=== PATIENT | male | born 1930 | race African-American/Black ===

== ENCOUNTER 2020-11-16 07:16 | Inpatient (IN) | payer MEDICAID ==
[~2020-11-16] VITALS: Ht 165.1 cm; Wt 71.2 kg
[2020-11-16] MEDS ORDERED: SODIUM CHLORIDE 0.9% 1000ML BAG (SEPSIS BOLUS) IV ONE (07:45)
[2020-11-16] MEDS ORDERED: VANCOMYCIN 1 G PREMIX 200 ML IV ONE (07:45)
[2020-11-16] MEDS ORDERED: PIPERACILLIN/TAZ 3.375G PREMIX 50 ML IV ONE (07:45)
[2020-11-16] MEDS ORDERED: ACETAMINOPHEN 650MG SUPP PR STA (07:45)
[2020-11-16 08:55] LABS: HEMATOCRIT. 38.5 % (42.0-52.0); HEMOGLOBIN. 12.9 g/dL (14.0-18.0); MEAN CORPUSCULAR HEMOGLOBIN 33.4 pg (28.0-32.0); MEAN CORPUSCULAR VOLUME 99.8 fL (80.0-94.0); MEAN PLATELET VOLUME 9.3 fl (7.4-10.4); PLATELET 184 x1000/uL (130-400); RED BLOOD CELL COUNT 3.85 mill/uL (4.7-6.1); RED CELL DISTRIBUTION WIDTH 14.6 % (11.6-14.6)
[2020-11-16 09:03] LABS: CHLORIDE 109 mEq/L (98-107)
[2020-11-16 09:04] LABS: PROTHROMBIN TIME 10.3 sec (9.6-11.0)
[2020-11-16 10:24] LABS: PLATELET ESTIMATE NORMAL
[2020-11-16 11:24] LABS: BG BASE EXCESS -9.2 mmol/L (-2.0-2.0); BG CARBOXYHEMOGLOBIN 0.3 % (0.5-1.5); BG DEOXYHEMOGLOBIN 5.8 % (0.0-5.0); BG FRACTION INSPIRED OXYGEN 100; BG HCO3 ACT 15.9 mmol/L (22.0-26.0); BG METHEMOGLOBIN 0.2 % (0.0-1.5); BG OXYGEN SATURATION 94.2 % (92.0-98.5); BG OXYHEMOGLOBIN 93.7 % (94.0-97.0); BG PCO2 32.1 mmHg (35.0-45.0); BG PH 7.314 (7.350-7.450); BG PO2 78.6 mmHg (75.0-100.0); BG SAMPLE SITE RIGHT RADIAL; BG TOTAL HEMOGLOBIN 11.2 g/dL (12.0-18.0); BG VENT MODE MASK - NRB
[2020-11-16] MEDS ORDERED: NOREPINEPHRINE 8 MG in DEXT 5% WATER 242 ML IV PRN ×2 (13:00→15:30)
[2020-11-16] MEDS ORDERED: MIDAZOLAM HCL 2 MG/2 ML VIAL IV ONE (13:45)
[2020-11-16] MEDS ORDERED: MIDAZOLAM HCL 100 MG in DEXT 5% WATER 80 ML IV ONE ×2 (13:45→14:00)
[2020-11-16] MEDS ORDERED: NOREPINEPHRINE 8 MG in DEXT 5% WATER 242 ML IV ONE (14:00)
[2020-11-16] MEDS ORDERED: ALBUMIN HUMAN 25GM/500ML (5%) IV NR (14:15)
[2020-11-16] MEDS: SODIUM CHLORIDE 0.9% 1,000 ML IV SCH (14:45)
[2020-11-16] MEDS ORDERED: ACETAMINOPHEN 650MG/20.3ML UDC GT PRN (14:45)
[2020-11-16] MEDS ORDERED: ONDANSETRON HCL 4MG/2ML INJ IV PRN (14:45)
[2020-11-16] MEDS ORDERED: ACETAMINOPHEN 650MG SUPP PR PRN ×2 (14:45)
[2020-11-16] MEDS ORDERED: PIPERACILLIN/TAZ 3.375G PREMIX 50 ML IV SCH (15:00)
[2020-11-16 15:30] LABS: BG BASE EXCESS -9.3 mmol/L (-2.0-2.0); BG CARBOXYHEMOGLOBIN 0.3 % (0.5-1.5); BG DEOXYHEMOGLOBIN 16.4 % (0.0-5.0); BG FRACTION INSPIRED OXYGEN 100; BG METHEMOGLOBIN 0.2 % (0.0-1.5); BG OXYGEN SATURATION 83.5 % (92.0-98.5); BG OXYHEMOGLOBIN 83.1 % (94.0-97.0); BG PCO2 50.9 mmHg (35.0-45.0); BG PO2 55.9 mmHg (75.0-100.0); BG SAMPLE SITE LEFT RADIAL; BG TOTAL HEMOGLOBIN 13.4 g/dL (12.0-18.0); BG VENT MODE VENT - AC
[2020-11-16 16:03] LABS: FOLIC ACID (FOLATE) SERUM >20 ng/mL ng/mL (>5.38)
[2020-11-16 16:08] LABS: VITAMIN B12 SERUM 924 pg/mL (211-911)
[2020-11-16 16:19] LABS: PHOSPHORUS 4.1 mg/dL (2.5-4.9)
[2020-11-16] MEDS ORDERED: ENOXAPARIN 40MG/0.4ML SYR SUBCUT SCH (17:00)
[2020-11-16] MEDS: PIPERACILLIN/TAZ 3.375G PREMIX 50 ML IV SCH (17:17)
[2020-11-16] MEDS: DEXAMETHASONE 10 MG/ML VIAL IV SCH (17:18)
[2020-11-16] MEDS ORDERED: ERGOCALCIFEROL 50000UNITS CAPSULE PO SCH (18:00)
[2020-11-16 18:07] LABS: BG BASE EXCESS -9.8 mmol/L (-2.0-2.0); BG CARBOXYHEMOGLOBIN 0.3 % (0.5-1.5); BG DEOXYHEMOGLOBIN 8.8 % (0.0-5.0); BG FRACTION INSPIRED OXYGEN 100; BG HCO3 ACT 15.5 mmol/L (22.0-26.0); BG METHEMOGLOBIN 0.4 % (0.0-1.5); BG OXYGEN SATURATION 91.1 % (92.0-98.5); BG OXYHEMOGLOBIN 90.5 % (94.0-97.0); BG PCO2 31.8 mmHg (35.0-45.0); BG PH 7.305 (7.350-7.450); BG PO2 64.8 mmHg (75.0-100.0); BG SAMPLE SITE RIGHT RADIAL; BG TOTAL HEMOGLOBIN 10.3 g/dL (12.0-18.0); BG VENT MODE VENT - AC
[2020-11-16] MEDS ORDERED: PIPERACILLIN/TAZOBACTAM 3.375 G/VIAL IV SCH (22:00)
[2020-11-17] VITALS (80 sets, daily range): BP systolic 58–154; BP diastolic 31–87
[2020-11-17] MEDS: PIPERACILLIN/TAZ 3.375G PREMIX 50 ML IV SCH (01:30)
[2020-11-17] MEDS ORDERED: DEXTROSE 50% WATER 50ML SYRINGE IV PRN (03:30)
[2020-11-17] MEDS: SODIUM CHLORIDE 0.9% 1,000 ML IV SCH ×2 (05:12→21:33)
[2020-11-17 05:46] LABS: HEMATOCRIT. 32.7 % (42.0-52.0); HEMOGLOBIN. 10.7 g/dL (14.0-18.0); MEAN CORPUSCULAR HEMOGLOBIN 32.6 pg (28.0-32.0); MEAN CORPUSCULAR VOLUME 99.8 fL (80.0-94.0); MEAN PLATELET VOLUME 9.6 fl (7.4-10.4); PLATELET 77 x1000/uL (130-400); RED BLOOD CELL COUNT 3.27 mill/uL (4.7-6.1); RED CELL DISTRIBUTION WIDTH 14.5 % (11.6-14.6)
[2020-11-17] MEDS ORDERED: BLOOD SUGAR DIAGNOSTIC STRIP TEST SCH (07:50)
[2020-11-17 08:14] LABS: PLATELET ESTIMATE DECREASED
[2020-11-17] MEDS ORDERED: INSULIN LISPRO 100 UNITS/ML SUBCUT SCH ×2 (08:20→21:00)
[2020-11-17] MEDS ORDERED: VANCOMYCIN 1 G PREMIX 200 ML IV SCH (09:00)
[2020-11-17] MEDS: PIPERACILLIN/TAZOBACTAM 2.25 G in DEXTROSE 5% WATER 50 ML IV SCH ×2 (10:14→17:10)
[2020-11-17] MEDS: DEXAMETHASONE 10 MG/ML VIAL IV SCH (10:14)
[2020-11-17] MEDS: BLOOD SUGAR DIAGNOSTIC STRIP TEST SCH ×3 (12:05→23:32)
[2020-11-17] MEDS: INSULIN LISPRO 100 UNITS/ML SUBCUT SCH ×3 (12:11→23:38)
[2020-11-17] MEDS: FENTANYL CITRATE/PF 2,500 MCG in SODIUM CHLORIDE 0.9% 200 ML IV PRN (12:11)
[2020-11-17] MEDS: NOREPINEPHRINE 32 MG in DEXT 5% WATER 218 ML IV PRN (12:13)
[2020-11-17 13:37] LABS: BG BASE EXCESS -13.5 mmol/L (-2.0-2.0); BG CARBOXYHEMOGLOBIN 0.3 % (0.5-1.5); BG DEOXYHEMOGLOBIN 1.2 % (0.0-5.0); BG FRACTION INSPIRED OXYGEN 100; BG HCO3 ACT 11.8 mmol/L (22.0-26.0); BG METHEMOGLOBIN 0.4 % (0.0-1.5); BG OXYGEN SATURATION 98.8 % (92.0-98.5); BG OXYHEMOGLOBIN 98.1 % (94.0-97.0); BG PCO2 25.9 mmHg (35.0-45.0); BG PH 7.277 (7.350-7.450); BG PO2 179.5 mmHg (75.0-100.0); BG SAMPLE SITE RIGHT RADIAL; BG TOTAL HEMOGLOBIN 10.5 g/dL (12.0-18.0); BG TOTAL RESPIRATORY RATE 43 b/min; BG VENT MODE VENT - AC
[2020-11-17] MEDS ORDERED: VANCOMYCIN 750 MG PREMIX 150 ML IV SCH (14:00)
[2020-11-17] MEDS ORDERED: MIDAZOLAM HCL 100 MG in DEXT 5% WATER 80 ML IV PRN (14:15)
[2020-11-17] MEDS ORDERED: MAGNESIUM 2 G PREMIX 50 ML IV NR (16:00)
[2020-11-17] MEDS ORDERED: SODIUM BICARBONATE 8.4% 1 MEQ/ML 50ML SYR IV ONE ×2 (18:30)
[2020-11-17] MEDS: PHENYLEPHRINE 100 MG in DEXT 5% WATER 240 ML IV PRN (22:16)
[2020-11-17] MEDS: CEFEPIME 2,000 MG in DEXT 5% WATER 100 ML IV SCH (23:37)
[2020-11-18] VITALS (97 sets, daily range): BP systolic 71–154; BP diastolic 40–102
[2020-11-18] MEDS ORDERED: ASPI-1497 PO (01:05)
[2020-11-18] MEDS ORDERED: CLON-457 PO (01:05)
[2020-11-18] MEDS ORDERED: ASCO500W7 PO (01:05)
[2020-11-18] MEDS ORDERED: METF-815 PO (01:05)
[2020-11-18] MEDS ORDERED: ZINC220T4 PO (01:05)
[2020-11-18] MEDS ORDERED: ATOR20TA65 PO (01:05)
[2020-11-18] MEDS ORDERED: LATA7.5D OP (01:05)
[2020-11-18] MEDS ORDERED: SENN-155 PO (01:05)
[2020-11-18] MEDS ORDERED: MIRT7.5T11 MT (01:05)
[2020-11-18] MEDS: NOREPINEPHRINE 32 MG in DEXT 5% WATER 218 ML IV PRN ×2 (02:55→17:25)
[2020-11-18] MEDS: BLOOD SUGAR DIAGNOSTIC STRIP TEST SCH ×4 (05:44→23:01)
[2020-11-18] MEDS: INSULIN LISPRO 100 UNITS/ML SUBCUT SCH ×4 (05:45→23:02)
[2020-11-18] MEDS ORDERED: VANCOMYCIN 750 MG PREMIX 150 ML IV SCH (06:00)
[2020-11-18 06:06] LABS: HEMATOCRIT. 29.9 % (42.0-52.0); HEMOGLOBIN. 10.3 g/dL (14.0-18.0); MEAN CORPUSCULAR HEMOGLOBIN 33.4 pg (28.0-32.0); MEAN CORPUSCULAR VOLUME 96.9 fL (80.0-94.0); MEAN PLATELET VOLUME 10.9 fl (7.4-10.4); RED BLOOD CELL COUNT 3.08 mill/uL (4.7-6.1); RED CELL DISTRIBUTION WIDTH 14.2 % (11.6-14.6)
[2020-11-18 06:36] LABS: PLATELET 34 x1000/uL (130-400)
[2020-11-18] MEDS ORDERED: DIGOXIN 500MCG/2ML AMP IV SCH (07:45)
[2020-11-18] MEDS ORDERED: MAGNESIUM 1 G PREMIX 100 ML IV ONE (08:00)
[2020-11-18] MEDS ORDERED: SODIUM BICARBONATE 8.4% 1 MEQ/ML 50ML SYR IV SCH (08:30)
[2020-11-18] MEDS: DEXAMETHASONE 10 MG/ML VIAL IV SCH (08:32)
[2020-11-18] MEDS ORDERED: AMIODARONE HCL 150 MG in DEXT 5% WATER 100 ML IV NR (09:15)
[2020-11-18] MEDS ORDERED: ALBUMIN HUMAN 12.5G/250ML (5%) IV NR (10:00)
[2020-11-18] MEDS: MAGNESIUM OXIDE 400MG TABLET GT SCH (10:01)
[2020-11-18 10:15] LABS: BG BASE EXCESS -9.3 mmol/L (-2.0-2.0); BG CARBOXYHEMOGLOBIN 0.3 % (0.5-1.5); BG DEOXYHEMOGLOBIN 6.7 % (0.0-5.0); BG HCO3 ACT 14.9 mmol/L (22.0-26.0); BG METHEMOGLOBIN 0.2 % (0.0-1.5); BG OXYGEN SATURATION 93.3 % (92.0-98.5); BG OXYHEMOGLOBIN 92.8 % (94.0-97.0); BG PCO2 27.6 mmHg (35.0-45.0); BG PH 7.351 (7.350-7.450); BG PO2 67.2 mmHg (75.0-100.0); BG SAMPLE SITE RIGHT BRACHIAL; BG TOTAL HEMOGLOBIN 11.1 g/dL (12.0-18.0); BG VENT MODE VENT - AC
[2020-11-18] MEDS: AMIODARONE HCL 900 MG in DEXT 5% WATER 482 ML IV SCH (12:35)
[2020-11-18] MEDS: PHENYLEPHRINE 100 MG in DEXT 5% WATER 240 ML IV PRN ×2 (14:53→23:27)
[2020-11-18] MEDS: SODIUM CHLORIDE 0.9% 1,000 ML IV SCH (17:33)
[2020-11-18 19:37] LABS: PLATELET ESTIMATE MARKEDLY DECREASED
[2020-11-18] MEDS: CEFEPIME 2,000 MG in DEXT 5% WATER 100 ML IV SCH (22:54)
[2020-11-19] VITALS (88 sets, daily range): BP systolic 61–173; BP diastolic 34–95
[2020-11-19 00:46] LABS: CLARITY URINE CLOUDY (CLEAR); COLOR URINE YELLOW (YELLOW); OCCULT BLOOD URINE 1+ (NEGATIVE)
[2020-11-19 00:47] LABS: KETONES URINE NEGATIVE (NEGATIVE); LEUKOCYTE ESTERASE URINE NEGATIVE (NEGATIVE); NITRITE URINE NEGATIVE (NEGATIVE); PROTEIN URINE 1+ (NEGATIVE); SPECIFIC GRAVITY URINE 1.015 (1.005-1.030); UROBILINOGEN URINE 0.2 E.U./dL (0.2-1.0)
[2020-11-19] MEDS: BLOOD SUGAR DIAGNOSTIC STRIP TEST SCH ×3 (05:26→18:31)
[2020-11-19] MEDS: INSULIN LISPRO 100 UNITS/ML SUBCUT SCH ×3 (05:31→18:00)
[2020-11-19 05:57] LABS: HEMATOCRIT. 29.8 % (42.0-52.0); HEMOGLOBIN. 10.2 g/dL (14.0-18.0); MEAN CORPUSCULAR VOLUME 96.3 fL (80.0-94.0); MEAN PLATELET VOLUME 10.6 fl (7.4-10.4); RED CELL DISTRIBUTION WIDTH 14.3 % (11.6-14.6)
[2020-11-19 05:59] LABS: CHLORIDE 108 mEq/L (98-107)
[2020-11-19 06:07] LABS: PHOSPHORUS 4.6 mg/dL (2.5-4.9)
[2020-11-19 06:10] LABS: PLATELET 9 x1000/uL (130-400)
[2020-11-19] MEDS: PHENYLEPHRINE 100 MG in DEXT 5% WATER 240 ML IV PRN ×3 (07:16→21:04)
[2020-11-19] MEDS: MAGNESIUM OXIDE 400MG TABLET GT SCH (08:37)
[2020-11-19] MEDS: DEXAMETHASONE 10 MG/ML VIAL IV SCH (08:37)
[2020-11-19] MEDS: SODIUM CHLORIDE 0.9% 1,000 ML IV SCH ×2 (08:37→19:45)
[2020-11-19] MEDS: AMIODARONE HCL 900 MG in DEXT 5% WATER 482 ML IV SCH (12:28)
[2020-11-19 13:23] LABS: PLATELET ESTIMATE MARKEDLY DECREASED
[2020-11-19] MEDS: FENTANYL CITRATE/PF 2,500 MCG in SODIUM CHLORIDE 0.9% 200 ML IV PRN (16:26)
[2020-11-19] MEDS: NOREPINEPHRINE 32 MG in DEXT 5% WATER 218 ML IV PRN (16:26)
[2020-11-19] MEDS ORDERED: DOPAMINE 800MG PREMIX (DOUBLE) 250 ML IV PRN (21:00)
[2020-11-19] MEDS: CEFEPIME 2,000 MG in DEXT 5% WATER 100 ML IV SCH (22:19)
[2020-11-20] VITALS (85 sets, daily range): BP systolic 85–166; BP diastolic 46–94
[2020-11-20] MEDS: BLOOD SUGAR DIAGNOSTIC STRIP TEST SCH ×4 (00:06→18:10)
[2020-11-20] MEDS: INSULIN LISPRO 100 UNITS/ML SUBCUT SCH ×4 (00:14→18:00)
[2020-11-20] MEDS: PHENYLEPHRINE 100 MG in DEXT 5% WATER 240 ML IV PRN ×3 (04:49→21:01)
[2020-11-20 06:02] LABS: HEMATOCRIT. 31.6 % (42.0-52.0); HEMOGLOBIN. 10.8 g/dL (14.0-18.0); MEAN CORPUSCULAR HEMOGLOBIN 33.2 pg (28.0-32.0); MEAN CORPUSCULAR VOLUME 96.8 fL (80.0-94.0); MEAN PLATELET VOLUME 9.5 fl (7.4-10.4); RED BLOOD CELL COUNT 3.26 mill/uL (4.7-6.1); RED CELL DISTRIBUTION WIDTH 14.5 % (11.6-14.6)
[2020-11-20 06:28] LABS: PLATELET 13 x1000/uL (130-400)
[2020-11-20 08:08] LABS: *CREATININE RANDOM URINE 35.3 mg/dL (Not Estab.); MICROALBUMIN RANDOM URINE 229.1 ug/mL (Not Estab.)
[2020-11-20] MEDS: DEXAMETHASONE 10 MG/ML VIAL IV SCH (09:41)
[2020-11-20] MEDS: MAGNESIUM OXIDE 400MG TABLET GT SCH (09:41)
[2020-11-20 10:58] LABS: PLATELET ESTIMATE MARKEDLY DECREASED
[2020-11-20] MEDS ORDERED: VANCOMYCIN 750 MG PREMIX 150 ML IV NR (12:00)
[2020-11-20] MEDS ORDERED: MORPHINE SULFATE 2 MG/ML CPJ (NOT FOR IM USE) IV PRN (12:15)
[2020-11-20] MEDS: SODIUM CHLORIDE 0.9% 1,000 ML IV SCH (12:30)
[2020-11-20] MEDS: NOREPINEPHRINE 32 MG in DEXT 5% WATER 218 ML IV PRN (18:13)
[2020-11-20] MEDS: CEFEPIME 2,000 MG in DEXT 5% WATER 100 ML IV SCH (22:52)
[2020-11-21] VITALS (61 sets, daily range): BP systolic 72–119; BP diastolic 36–73
[2020-11-21] MEDS: INSULIN LISPRO 100 UNITS/ML SUBCUT SCH ×3 (00:02→11:42)
[2020-11-21] MEDS: BLOOD SUGAR DIAGNOSTIC STRIP TEST SCH ×3 (00:02→11:41)
[2020-11-21] MEDS: PHENYLEPHRINE 100 MG in DEXT 5% WATER 240 ML IV PRN ×2 (04:49→14:53)
[2020-11-21] MEDS: DEXTROSE 50% WATER 50ML SYRINGE IV PRN ×2 (05:29→08:25)
[2020-11-21 05:58] LABS: HEMATOCRIT. 33.4 % (42.0-52.0); HEMOGLOBIN. 11.4 g/dL (14.0-18.0); MEAN CORPUSCULAR HEMOGLOBIN 33.2 pg (28.0-32.0); MEAN CORPUSCULAR VOLUME 96.8 fL (80.0-94.0); MEAN PLATELET VOLUME 10.1 fl (7.4-10.4); RED BLOOD CELL COUNT 3.45 mill/uL (4.7-6.1); RED CELL DISTRIBUTION WIDTH 14.7 % (11.6-14.6)
[2020-11-21 07:38] LABS: PLATELET 5 x1000/uL (130-400)
[2020-11-21] MEDS: DEXAMETHASONE 10 MG/ML VIAL IV SCH (08:25)
[2020-11-21] MEDS: MAGNESIUM OXIDE 400MG TABLET GT SCH (08:25)
[2020-11-21] MEDS: SODIUM CHLORIDE 0.9% 1,000 ML IV SCH (08:26)
[2020-11-21 10:14] LABS: BG CARBOXYHEMOGLOBIN 0.3 % (0.5-1.5); BG DEOXYHEMOGLOBIN 24.3 % (0.0-5.0); BG FRACTION INSPIRED OXYGEN 100; BG HCO3 ACT 12.8 mmol/L (22.0-26.0); BG METHEMOGLOBIN 0.3 % (0.0-1.5); BG OXYGEN SATURATION 75.6 % (92.0-98.5); BG OXYHEMOGLOBIN 75.1 % (94.0-97.0); BG PCO2 40.6 mmHg (35.0-45.0); BG PH 7.115 (7.350-7.450); BG PO2 51.2 mmHg (75.0-100.0); BG SAMPLE SITE RIGHT RADIAL; BG TOTAL HEMOGLOBIN 12.7 g/dL (12.0-18.0); BG VENT MODE VENT - AC
[2020-11-21] MEDS ORDERED: SODIUM BICARBONATE 8.4% 1 MEQ/ML 50ML SYR IV ONE (11:00)
[2020-11-21] MEDS: NOREPINEPHRINE 32 MG in DEXT 5% WATER 218 ML IV PRN (12:51)
[2020-11-21 13:51] LABS: NUCLEATED RED BLOOD CELLS 2 /100 WBC; PLATELET ESTIMATE MARKEDLY DECREASED
[2020-11-21] MEDS ORDERED: MORPHINE SULFATE 4 MG/ML CPJ (NOT FOR IM USE) IV NR ×2 (15:00)
[2020-11-21] MEDS ORDERED: MORPHINE SULFATE 2 MG/ML CPJ (NOT FOR IM USE) IV PRN (15:00)
[2020-11-21] MEDS ORDERED: LORAZEPAM 2MG/ML CPJ IV NR (15:00)
[2020-11-21 19:10] LABS: 25-HYDROXY VITAMIN D3 26 ng/mL (.)
== END 2020-11-21 16:55 | disposition expired | DRG 720 ==
LOC: ER 07:28 → MICUSO 13:17 → EDBEDREQ 13:19 → EDBEDREQSVC 13:20 → CVICU 11-17 01:35
PROVIDERS: ADMIT Internal Medicine; ATTEND Internal Medicine
PROC: 5A1955Z Respiratory Ventilation, Greater than 96 Consecutive Hours (ICD-10-PCS; principal; 2020-11-16)
PROC: 0BH18EZ Insertion of Endotracheal Airway into Trachea, Via Natural or Artificial Opening Endoscopic (ICD-10-PCS; 2020-11-16)
PROC: 05HM33Z Insertion of Infusion Device into Right Internal Jugular Vein, Percutaneous Approach (ICD-10-PCS; 2020-11-16)
PROC: B543ZZA Ultrasonography of Right Jugular Veins, Guidance (ICD-10-PCS; 2020-11-16)
DX: A41.89 Other specified sepsis (principal); J12.89 Other viral pneumonia; K72.00 Acute and subacute hepatic failure without coma; R65.21 Severe sepsis with septic shock; U07.1 COVID-19; J96.01 Acute respiratory failure with hypoxia; N17.9 Acute kidney failure, unspecified; E83.42 Hypomagnesemia; E87.5 Hyperkalemia; I10 Essential (primary) hypertension; F03.90 Unspecified dementia, unspecified severity, without behavioral disturbance, psychotic disturbance, mood disturbance, and anxiety; D61.818 Other pancytopenia; I48.91 Unspecified atrial fibrillation; I47.1 Supraventricular tachycardia; E87.4 Mixed disorder of acid-base balance; E11.51 Type 2 diabetes mellitus with diabetic peripheral angiopathy without gangrene; I48.92 Unspecified atrial flutter; F09 Unspecified mental disorder due to known physiological condition; Z66 Do not resuscitate; Z51.5 Encounter for palliative care; G93.40 Encephalopathy, unspecified; Z89.511 Acquired absence of right leg below knee; Z89.512 Acquired absence of left leg below knee; Z89.611 Acquired absence of right leg above knee; Z89.612 Acquired absence of left leg above knee; E43 Unspecified severe protein-calorie malnutrition; G93.41 Metabolic encephalopathy
CPT/HCPCS: 36415; 36600; 71045; 74176; 80048; 80053; 80061; 80076; 80202; 81003; 82043; 82306; 82375; 82570; 82607; 82746; 82805; 82962; 83036; 83605; 83735; 83880; 84100; 84132; 84145; 84300; 84443; 84484; 85025; 85379; 85384; 86850; 86900; 93005; 94003; 99291; J0282; J0692; J1100; J1160; J1650; J1815; J2250; J2270; J2370; J2543; J3010; J3370; J3475; J3490; J7030; J7050; J7060; P9034; P9041; U0003